=== PATIENT | female | born 2000 | race Caucasian/White ===

== ENCOUNTER → 2022-09-01 | Outpatient (CLI) | payer OTHER, SELFPAY ==
--- NOTE | 2022-09-01 17:35 | MRI_ITS ---
STUDY: MRI LUMBAR SPINE WITHOUT CONTRAST REASON FOR EXAM: Female, 22 years old. pain TECHNIQUE: Standardized fat and water weighted pulse sequences were obtained in the sagittal and axial planes. COMPARISON: X-ray 08/02/2021 FINDINGS: T12-L1: Normal endplates. Normal disc height, hydration and morphology. Normal bilateral facet joints. Normal central canal and bilateral lateral recesses. Normal bilateral intervertebral neural foramina. Normal lumbar lordosis. Mild dextroscoliosis centered at L3. Normal conus medullaris that terminates at the L1. L1-2: Normal endplates. Normal disc height, hydration and morphology. Normal bilateral facet joints. Normal central canal and bilateral lateral recesses. Normal bilateral intervertebral neural foramina. L2-3: Normal endplates. Normal disc height, hydration and morphology. Normal bilateral facet joints. Normal central canal and bilateral lateral recesses. Normal bilateral intervertebral neural foramina. L3-4: Normal endplates. Normal disc height, hydration and morphology. Normal bilateral facet joints. Normal central canal and bilateral lateral recesses. Normal bilateral intervertebral neural foramina. L4-5: Large central disc protrusion produces severe spinal stenosis with severe bilateral lateral recess stenosis with effacement of the L5 nerve roots bilaterally and no neural foraminal stenosis. L5-S1: Normal endplates. Normal disc height, hydration and morphology. Normal bilateral facet joints. Normal central canal and bilateral lateral recesses. Normal bilateral intervertebral neural foramina. Normal visualized sacral ala. Normal visualized paraspinous soft tissue structures. MRI/Spine Lumbar (Routine) IMPRESSION: Large central disc protrusion at L4/L5 produces severe spinal stenosis with severe bilateral recess stenosis with effacement of the L5 nerve roots bilaterally. Electronically Signed: Sher Saldaña MD at 18:59 EDT ,
== END | disposition home or self-care (01) ==
PROVIDERS: PCP Family Medicine; Visit Provider Orthopaedic Surgery
DX: M54.50 Low back pain, unspecified (principal)
CPT/HCPCS: 72148

== ENCOUNTER 2022-10-03 05:31 | Inpatient (IN) | payer OTHER, SELFPAY ==
--- NOTE | 2022-09-22 14:11 | EKG12_ITS ---
Test Reason : PRE OP Blood Pressure : / mmHG Vent. Rate : 074 BPM Atrial Rate : 074 BPM P-R Int : 150 ms QRS Dur : 082 ms QT Int : 392 ms P-R-T Axes : 037 070 041 degrees QTc Int : 435 ms Normal sinus rhythm Normal ECG Confirmed by DANA TAYLOR, ZOEY ([id number]), fan mail editor KAELA GÓMEZ ([id number]) on 09/25/2022 1:22:17 PM Referred By: ALKA Confirmed By:ZOEY CORTEZ MD
[2022-09-22 15:42] LABS: Absolute Neutrophil Count 4.9 X10^3/uL (2.0-7.7); Basophil# 0.02 X10^3/uL; Basophil% 0.3 % (0-1); Eosinophil# 0.05 X10^3/uL; Eosinophils% 0.7 % (0-5); Hematocrit 39.8 % (37-47); Hemoglobin 13.8 g/dL (12.0-15.0); Lymphocyte % 21.8 % (19-41); Mean Corp Hgb Conc 34.7 g/dL (32-36); Mean Corpuscular Volume 92.3 fL (81-99); Mean Platelet Vol. 8.4 fl (6.2-12.0); Monocyte# 0.42 X10^3/uL; Monocyte% 6.1 % (0-10); NRBC Flagged by Analyzer 0 % (0-5); Neutrophil # 4.86 X10^3/uL (2.7-7.7); Neutrophil % 70.7 % (47-70); Platelet Count 358 K/mm3 (150-450); RBC Distribution Width CV 12.1 % (11.6-14.6); RBC Distribution Width SD 41.5 fl (35.1-43.9); Red Blood Count 4.31 M/mm3 (4.2-5.4); White Blood Count 6.9 K/mm3 (4.4-11.0)
[2022-09-22 16:09] LABS: Magnesium 2.1 mg/dL (1.6-2.6)
[2022-09-22 16:19] LABS: Anion Gap 10 (5-15); BUN 12 mg/dL (7-18); BUN/Creat Ratio 21.6 RATIO (10-20); Calcium,Total 9.4 mg/dL (8.5-10.1); Chloride 106 mmol/L (98-107); Creatinine, Serum 0.56 mg/dL (0.55-1.02); EST Glomerular Filtration Rate 146 mL/min (>60); Est Glom Filt Rate - Afr Amer 177 mL/min (>60); Glucose 86 mg/dL (74-106); Potassium 3.8 mmol/L (3.5-5.1); Sodium Level 141 mmol/L (136-145)
[2022-09-24 10:47] LABS: Hepatitis A AB, Total Negative (Negative)
[2022-09-25 08:45] LABS: HIV - WCH Non-Reactive (Nonreactive); Hepatitis B Surface Antibody Reactive; Hepatitis C Antibody Non-Reactive (Nonreactive)
--- NOTE | 2022-10-02 14:50 | PCM.HP.BLA ---
History and Physical Addendum MR#: [id number] Acct: [id number] Name:PRICILA LENTZ Rep #: [id number] : 2000 ? ? Provider: Dr. David Goldman, DO Age/Sex:? 22/F ? ? Location: [facility] [place].[facility] Status: Signed Intake Intake Visit Reasons:?lumber spine Allergies Penicillins Allergy (Mild, Verified 08/02/22 14:26) Other PFSH Surgical History?(Updated 08/02/22 @ 14:40 by Misa Scott) Hx of appendectomy Social History?(Updated 08/02/22 @ 14:43 by Misa Scott) Smoking Status:? Never smoker alcohol intake:? current what type of physical activity do you participate in:? walking HPI lumber spine Details: Parts of this documentation were recorded by a scribe, this documentation accurately reflects the service provided and the decisions made by me, Dr. David Goldman, DO 09/04/22 0914. PRICILA MORRIS is a 22 year old F here today for? F/U on lumbar spine after having MRI completed. She continues to have low back pain that radiates down both her legs but more into her right. States that she has numbness and tingling in both her legs more more in the feet. States that her pain is more by her butt.?She states that the pain has gotten worse. Denies any bowel or bladder issues. Mckenzie returns today at my request.? She is in the company of her mother Amna.? Sunday night I got a call from the department of radiology regarding the MRI scan that Pricila had on Sunday.? I was told that she had a large herniated disc at L4-5 with severe stenosis because of the disc.? Sunday morning I came to my office so that I could review the MRI scan myself.? Indeed she does have a very large herniation with calcification of part of the disc given her a very severe stenosis with a lot of pressure on the cauda equina.? I would call it critical.? Her mother who was in [place] on Sunday promptly returned home upon hearing the news.? I personally called Mckenzie from my office on Sunday and ask her to come here today to review the MRI scan.? Luckily she brought her mom with her. Their examination has not changed she has pain with extension or flexion of her lumbar spine.? But she remains neurologically intact in both lower extremities. I reviewed the MRI scan itself with Amna her mom and Pricila.? 1 does not have to be radiologist to see the severity of the stenosis that she has.? I explained to them that because is a such a large central herniation that it would be impossible to get it all of it from the back.? As the cauda equine will be in the way.? Will require an anterior approach for part of the decompression.? Where I will go through the disc anteriorly after a vascular surgeon gives me access he would then put a cage in place and a plate.? I do not think that a artificial disc is a good idea as she will still have movement.? Part of the idea is that we need that motion segment at L4-5 to stop moving.? Once the front part is done we will then do bilateral laminectomies at L4-5.? The calcified top portion of the disc will also be a challenge where I may be able to tamp it down.? Overall the whole idea of the surgery is to decompress the cauda equina.? Pricila and her mom both understood perfectly and saw the big picture.? We will schedule her in the [id number] future.? I will see her again 1 week before her surgery at preop. Coding Level of Care Code Off vis,est,level 2 Diagnoses HNP (herniated nucleus pulposus), lumbar? M51.26 Herniated nucleus pulposus, L4-5? M51.26 Spinal stenosis at L4-L5 level? M48.061 Time Spent (min) 35 Assessment and Plan Assessment and Plan (1) HNP (herniated nucleus pulposus), lumbar: ?Status:?Acute (2) Herniated nucleus pulposus, L4-5: ?Status:?Acute (3) Spinal stenosis at L4-L5 level:
[2022-10-03] VITALS (15 sets, daily range): BP systolic 105–130; BP diastolic 65–91; PULSE 66–91; RESP 13–17; TEMP 36–36.8; O2SAT 98–100; BMI 30.4
[2022-10-03 06:14] LABS: Internal QC Validated? YES +Cl - CLEAR BKGD; Pregnancy, Urine Negative Negative
[2022-10-03] MEDS: Lactated Ringers 1,000 ML 15 ML IV (06:30)
[2022-10-03] MEDS: Acetaminophen 500 MG Tablet 1000 MG PO ×2 (06:31→18:42)
[2022-10-03 07:35] LABS: Bedside Glucose 95 mg/dL (74-106)
[2022-10-03] MEDS: Cefazolin 2 GM in 0.9% Normal Saline 100 ML IV (08:00)
[2022-10-03] MEDS: Heparin 10,000 UNITS/10 ML Vial 10000 UNITS (08:31)
[2022-10-03] MEDS: THROMBIN (RECOMBINANT) 20,000 UNIT VIAL 20000 UNIT TOPICAL (08:31)
--- NOTE | 2022-10-03 10:15 | RAD_ITS ---
STUDY: X-RAY - LUMBAR SPINE REASON FOR EXAM: Female, 22 years old. 360 FUSION L4-5 WITH BILATERAL LAMINECTOMIES TECHNIQUE: 1 view(s) of the lumbar spine were obtained. COMPARISON: None FINDINGS: The localization instrument is seen anterior to the L5-S1 disc space level. RAD/Spine 1 View Any Level IMPRESSION: The localization instrument is seen anterior to the L5-S1 disc space level. Electronically Signed: Ilan Dey MD at 14:37 EST ,
--- NOTE | 2022-10-03 10:45 | RAD_ITS ---
STUDY: X-RAY - LUMBAR SPINE REASON FOR EXAM: Female, 22 years old. IMAGE 2 confirmed L4-5 TECHNIQUE: 1 view(s) of the lumbar spine were obtained. COMPARISON: None FINDINGS: The localization instrument is seen anterior to the L4-L5 disc space level. RAD/Spine 1 View Any Level IMPRESSION: The localization instrument is seen anterior to the L4-L5 disc space level. Electronically Signed: Ilan Dey MD at 14:37 EST ,
--- NOTE | 2022-10-03 11:45 | RAD_ITS ---
STUDY: X-RAY - LUMBAR SPINE REASON FOR EXAM: Female, 22 years old. IMAGE 3 TECHNIQUE: 1 view(s) of the lumbar spine were obtained. COMPARISON: Comparison is made with prior study done earlier today. FINDINGS: The patient is status post anterior fusion at the L4-L5 level with prosthetic disc placement. RAD/Spine 1 View Any Level IMPRESSION: Status post anterior fusion at the L4-L5 level with prosthetic disc. Electronically Signed: Ilan Dey MD at 14:38 EST ,
--- NOTE | 2022-10-03 11:50 | RAD_ITS ---
STUDY: X-RAY - LUMBAR SPINE REASON FOR EXAM: Female, 22 years old. IMAGE 4 TECHNIQUE: 4 view(s) of the lumbar spine were obtained. COMPARISON: October 03, 2022 11:34 AM. FINDINGS: A single lateral view demonstrated. There is a anteriorly located side plate cortical screws and a disc spacer at L4-L5. There is a posterior plate has been a laminectomy at the level of L4-L5. RAD/Spine 1 View Any Level IMPRESSION: Lateral view demonstrating anterior posterior spinal fusion L4-L5 with a disc spacer. Electronically Signed: Shaniqua Leon MD at 0:25 EST ,
--- NOTE | 2022-10-03 12:07 | OP.PCM_ITS ---
Report of Operation Description of Surgical Findings:: Preoperative diagnosis: Large herniated disc L4-5 Postoperative diagnosis: The same Procedures: #1 anterior lumbar interbody fusion L4-5 CPT code 75263 #2 anterior spine plate L4-5 CPT code 50794/59 #3 insertion of titanium cage L4-5 CPT code 91845 Co-surgeon's: Dr. Goldman and Dr. Alejo anesthesiologist assistant certified: Clemente from surgery Anesthesia: General endotracheal by [facility] EBL: Less than 100 Drains: None Complications: None Procedure: The patient was taken to the OR where she was placed in the supine position on the operating table she was then placed under general endotracheal anesthesia. Neuro monitoring placed their leads on the patient. A Vargas catheter was inserted. The abdomen was then prepped and draped in standard fashion. The surgical approach is described in Dr. Alejo's operative summary. Once he gained exposure at L4-5 and intraoperative BX x-ray was taken to prove that we were indeed at L4-5. This was confirmed by the radiologist. I think of the anterior annulus with a 10 blade. I remove the nucleus with pituitary rongeurs and both bowl curettes and ring curettes. This is a extended process because of the hard endplate. We removed the nucleus all the way back to the posterior annulus that there was indeed a tear in the annulus as expected of course and its unknown whether when we removed nucleus if some of it came in hoang k through the hole and into this but did space. Nonetheless this will be addressed when we do the backside what I have to do a laminotomy L4-5 on both sides starting with the right. This was done I removed all the cartilage off the endplates. I also used a 6 mm fan bur to bur the backside a little bit to make room for the cage. We decided on a 12 mm high cage that was 25 x 35 in size and 8 degrees of lordosis. Noted earlier we had a taken 60 cc of the patient's bone marrow aspirate from the left iliac crest. This was handed off to the hazardous material technician in the room she the stem cells from the other cells concentrated them about 10 times and gave them back to us. I then placed the spongy allograft in the cage filling the spaces on both halves and this was then soaked in the patient's own stem cells. This was then tamped into place. Note that we of course did broach the space repeatedly to get good bleeding and plate. Once the cage was in place it was countersunk 2 or 3 mm we then used a 23 mm plate anteriorly note that we did cheat to the left side because this was the L4-5 level and wanted to keep the plate away from the great vessels. I then used an awl to punch the first of 4 holes the first 1 was into L5 on 1 corner followed by L4 on the opposite corner once the awl was done the 30 mm screws were inserted. This was done in all 4 points. The locking mechanisms were then activated. We then took an intraoperative x-ray demonstrated excellent position of the cage the plate and the screws. Amniotic membrane was then placed over the plate to prevent adhesions to the great vessels in the future. The closure is then described in Dr. Alejo's operative summary. This is the end of operative summary on Mckenzie Alvarenga. This is Dr. Goldman dictating.
--- NOTE | 2022-10-03 13:48 | RAD_ITS ---
STUDY: X-RAY - LUMBAR SPINE REASON FOR EXAM: Female, 22 years old. IMAGE 5 TECHNIQUE: 1 view(s) of the lumbar spine were obtained. 3:22 PM COMPARISON: None FINDINGS: This is a single lateral view 3:22 PM demonstrating anterior plate disc spacer and posterior hardware at the level of L4-L5. There is been a laminectomy. RAD/Spine 1 View Any Level IMPRESSION: Postoperative changes 3:22 PM lumbar spine status post fusion. Electronically Signed: Shaniqua Leon MD at 2:19 EST ,
--- NOTE | 2022-10-03 16:09 | OP.PCM_ITS ---
Report of Operation Description of Surgical Findings:: Preoperative diagnosis: Large herniated disc L4-5 with impending cauda equina Postoperative diagnosis: Same Procedures: #1 posterior lumbar interbody fusion L4-5 CPT code 65949 #2 lumbar laminectomy L4-5 on the right CPT code 78868 #3 lumbar laminectomy L4-5 on the left CPT code 01449/50 and 51 #4 internal segmental fixation L4-5 CPT code 59648 Surgeon: Dr. Goldman assistant manager airside operations: Clemente from surgery Anesthesia: General endotracheal by [facility] EBL: 75 cc on the back for a total of 175 cc for both the front surgery and the back surgery Drains medium Hemovac drain Complications: None Procedure: Once the anterior procedure was done and the anterior wound closed the patient was then placed in the prone position on the Juan frame. Once positioned properly to protect her bony prominences her breasts her ulnar nerves of both elbows her brachial plexus her cervical spine the back was prepped and draped standard fashion. I then made a longitudinal incision centered over L4- 5. Subcutaneous tissues were incised length of skin incision. I was working from the patient's right side so I opened the lumbar fascia to the right of the spinous processes using cautery and elevated the paravertebral muscles off the lamina and spinous process of L4 and the top of the lamina of L5. A Renay retractor was then put in place to give us good access I then released the ligamentum flavum off the underside of the lamina of L4 I thinned the lamina down with double-action rongeurs and then performed the hemilaminectomy on the right side using both 3 and 4 mm Kerrison rongeurs. I then remove the ligamentum flavum in retrograde fashion with a 45 degree Kerrison rongeurs all the way back down to the top of the L5 lamina. There was then retracted the L5 nerve root and the dura medialward and the large herniated disc was observed noted at the upper portion of it with course was calcified and the bottom portion was not using a 15 blade we opened at the bottom portion and removed more disc from within the remaining disc space. The cage was observed. Was impossible to cut into the calcified portion of the disc however I used a tamp to tamp it down and tamped it down flat. Bleeders were controlled with bipolar cautery and thrombin-soaked Gelfoam. We packed the Gelfoam in place and removed the other side I then open the left side the same way elevating the paravertebral muscles off the lamina of L5 and the lamina of L4 I then elevated the paravertebral muscles all the way out to the facet at this point we went ahead and put the self-retaining super slider retractors in place. I thinned down the lamina again removed or elevated the ligamentum flavum off the underside of the lamina of L4 and the laminectomy of L4 was carried out with 45 degree Kerrison rongeurs. This was done again the dura was identified along with the nerve root it was then retracted to the midline and again I cut into the disc with actually a rather large fragment coming out from under the annulus. Again the tamp was used to tamp down the remaining and bulging heart hard calcified disc. This completely decompressed the cauda equina. Note that we then placed amnionic membrane over both laminotomy sites to prevent adhesions in the future. I then removed the interspinous ligament between L5 and L for the H graft was then tamped in place still to be used a 16 mm graft. This was an allograft. The internal fixation device was then applied and the locking locking mechanisms activated. A medium Hemovac drain was left in place and then closed the lumbar fascia using [id number] suture with #1 Vicryl for closure of subcutaneous tissues with 2-0 Vicryl in 2 layers in interrupted fashion and the skin was approximated using skin clips. Sterile dressings were then applied. She was then recovered in the OR she was moved to her hospital bed and taken to recovery in satisfactory condition. This is the end of operative summary on Mckenzie Alvarenga. This is Dr. Goldman dictating.
--- NOTE | 2022-10-03 17:11 | OP.PCM_ITS ---
Report of Operation Date of Procedure: 10/03/22 Pre-Operative Diagnosis: Herniated disc L4-L5 Post-Operative Diagnosis: Same Surgery/Procedure Performed:: Anterior lumbar interbody fusion L4-L5 Surgeon: Zr-eagreau-OgDr. Jones Alejo Type of Anesthesia: General Description of Procedure: HPI: Patient is a 22-year-old female with herniated L4-L5 disc who was evaluated by Dr. Goldman and felt to be appropriate for anterior approach lumbar interbody fusion. Vascular surgery services are obtained for exposure and vessel mobilization. Description of procedure: Upon obtaining form consent and verification correct patient procedure and site, the patient was taken the operating room where she was placed under anesthesia. Time out was then performed, and a transverse incision was made in the left lower quadrant just inferior to the umbilicus. Bovie electrocautery was dissect out the subcutaneous tissue down to the level of the fascia and self-retaining retractors put in position. The fascia was then incised transversely, with counterincision on the medial inferior aspect and the lateral superior aspect. There is a fair amount of scar in the fascia and rectus muscle likely from her prior appendectomy surgery. The scar was dissected free and the rectus muscle mobilized circumferentially and retracted medially. Next blunt dissection was used to mobilize the peritoneum from the posterior aspect of the fascia and mobilized medially. The posterior sheath was then freed from the peritoneum and incised vertically. Further blunt dissection was carried medially until midline structures were palpable at which point a wet lap sponge was put in the position to maintain her dissected plane. This point the rectus muscle was then retracted laterally and an Omni retractor was brought into the field and placed in the position. Once the retractor blades were put in position the lap sponge was removed at which point the iliac vessels were visualized. Combination of sharp and blunt dissection was then used to dissect free the left iliac artery and vein, and of note the patient had a very short common iliac artery with high bifurcation. We initially dissected medial to the iliac artery and staying lateral to the iliac vein, however from this position we are unable to gain adequate cephalad exposure to visualize the L4-L5 disc space. At this point retractors were repositioned and the iliac artery and aorta within retracted medially. The iliolumbar vein was identified ligated with silk ties, medium clips, and oversewn with a 5-0 Prolene. Was then divided allowing further medial retraction. This point further blunt dissection was used to mobilize vascular structures medially until satisfactory midline vertebral body visualization was obtained. At this point the interbody space was marked and x-ray performed to confirm location, Dr. Goldman scrubbed in to perform his portion of the procedure which she dictate separately. After completion of the discectomy and insertion of hardware, the vessels were then inspected with no evident injury and satisfactory stasis. The retractor blades were then removed sequentially while inspecting the retroperitoneal structures, again with satisfactory stasis. The peritoneum and its contents was then allowed to return to its united keetoowah position and self-retaining retractor blades removed in entirety. The fascia was then closed with PDS in a running fashion followed by irrigation of the subcutaneous space. Incision was then closed with 2-0 Vicryl, 3-0 Vicryl, 4-0 Monocryl and Dermabond for the skin. At this point dry dressings were applied and the patient repositioned for posterior instrumentation by Dr. Goldman.
[2022-10-03] MEDS: Morphine 4 MG/ML Syringe IV (18:42)
[2022-10-03] MEDS: 0.9% Saline Lock 10 ML Syringe IV (18:43)
[2022-10-03] MEDS: Lactated Ringers 1,000 ML 100 ML IV (19:46)
[2022-10-03] MEDS: FLUoxetine 10 MG Capsule 30 MG PO (19:46)
[2022-10-03] MEDS: Cefazolin 1 GM/50 ML BAG IV (19:47)
--- NOTE | 2022-10-03 20:06 | PCM.PN.HOSP ---
Subjective Subjective 22-year-old female presenting for medical management after an anterior lumbar interbody fusion L4-L5. She has no medical history, and is doing well postoperatively. Objective Data Objective Data Vital Signs: Vital Signs Temp Pulse Resp BP Pulse Ox O2 Del Method O2 Flow Rate 98.2 F 88 14 121/85 H 100 Room Air 4 10/03/22 19:02 10/03/22 19:02 10/03/22 19:02 10/03/22 19:02 10/03/22 19:02 10/03/22 19:02 10/03/22 18:00 Oxygen Flow Rate (L/min) 4 Oxygen Delivery Method Room Air Weight: 177 lb 11.081 oz Body Mass Index (BMI) 30.4 Intake & Output: Intake and Output for Last 24 Hours 10/02/22 10/03/22 10/04/22 03:59 03:59 03:59 Intake Total 4212 / 4212 Output Total 850 / 850 Balance 3362 / 3362 Lab / Micro Data Result Diagrams: 09/22/22 14:26 09/22/22 14:26 Labs: Laboratory Results - last 24 hr 10/03/22 06:03: Urine Test Negative 10/03/22 06:25: POC Glucose 95 Micro: Microbiology 09/22/22 14:26 Swab (Method) Nasal Screen MRSA/MSSA - Final Radiography Diagnostic Testing: Radiology Impression Spine X-Ray 10/03/22 10:15 IMPRESSION: The localization instrument is seen anterior to the L5-S1 disc space level. Electronically Signed: Ilan Dey MD at 14:37 EST , Spine X-Ray 10/03/22 10:45 IMPRESSION: The localization instrument is seen anterior to the L4-L5 disc space level. Electronically Signed: Ilan Dey MD at 14:37 EST , Spine X-Ray 10/03/22 11:45 IMPRESSION: Status post anterior fusion at the L4-L5 level with prosthetic disc. Electronically Signed: Ilan Dey MD at 14:38 EST , Physical Exam Const alert, oriented x3 and no apparent distress General Appearance: cooperative HEENT normocephalic and moist oral mucous membranes Eyes PERRL, EOMs intact bilaterally and conjunctivae normal Neck supple and no JVD Resp normal respiratory effort, no retractions, no use of accessory muscles and clear to auscultation bilaterally Auscultation: Negative for crackles, rales, rhonchi or wheezes Cardio regular rate, regular rhythm, S1 normal heart sound, S2 normal heart sound and no murmurs GI soft to palpation, non-tender and non-distended; Negative for hepatosplenomegaly Extremity no clubbing, cyanosis or edema Skin no rashes or lesions noted Skin Narrative: Dressing and drain intact Neuro no focal motor deficits and no sensory deficits noted Psych affect normal Appearance: appropriate Assessment & Plan Assessment/Plan (1) Herniated nucleus pulposus, L4-5: (2) Spinal stenosis at L4-L5 level: PLAN: Plan 1. Status post spinal fusion 10/03/2022 ? Pain management per primary 2. Anxiety/depression ? Stable ? Continue with Prozac DVT: SCDs Charges/Coding Visit Charges Inpatient E&M: 33317 Subs Hosp L2
[2022-10-03] MEDS: oxyCODONE 5 MG Tablet PO (22:20)
[2022-10-04] VITALS (9 sets, daily range): BP systolic 108–123; BP diastolic 55–78; PULSE 68–95; RESP 18; TEMP 36.6–37.5; O2SAT 95–100
[2022-10-04] MEDS: Cefazolin 1 GM/50 ML BAG IV (02:28)
[2022-10-04] MEDS: Acetaminophen 500 MG Tablet 1000 MG PO ×3 (06:14→21:15)
[2022-10-04] MEDS: oxyCODONE 5 MG Tablet PO ×4 (06:14→21:15)
[2022-10-04 06:59] LABS: Absolute Lymphocyte Count 1.34 X10^3/uL (0.83-4.51); Absolute Neutrophil Count 16.1 X10^3/uL (2.0-7.7); Basophil# 0.02 X10^3/uL; Basophil% 0.1 % (0-1); Hematocrit 36.2 % (37-47); Hemoglobin 12.8 g/dL (12.0-15.0); Lymphocyte # 1.34 X10^3/ul (0.83-4.51); Lymphocyte % 7.2 % (19-41); Mean Corp Hgb Conc 35.4 g/dL (32-36); Mean Corpuscular Hgb 32.5 pg (27.0-32.0); Mean Corpuscular Volume 91.9 fL (81-99); Mean Platelet Vol. 8.8 fl (6.2-12.0); Monocyte# 1.12 X10^3/uL; NRBC Flagged by Analyzer 0 % (0-5); Neutrophil # 16.08 X10^3/uL (2.7-7.7); Neutrophil % 86.3 % (47-70); POSITIVE COUNT YES; Platelet Count 292 K/mm3 (150-450); RBC Distribution Width CV 11.9 % (11.6-14.6); RBC Distribution Width SD 40.3 fl (35.1-43.9); Red Blood Count 3.94 M/mm3 (4.2-5.4); White Blood Count 18.6 K/mm3 (4.4-11.0)
[2022-10-04 07:04] LABS: Differential Indicated SCAN CRITERIA MET
[2022-10-04 07:16] LABS: Anion Gap 9 (5-15); BUN 6 mg/dL (7-18); BUN/Creat Ratio 9.7 RATIO (10-20); Calcium,Total 9.2 mg/dL (8.5-10.1); Chloride 104 mmol/L (98-107); Creatinine, Serum 0.62 mg/dL (0.55-1.02); EST Glomerular Filtration Rate 129 mL/min (>60); Est Glom Filt Rate - Afr Amer 156 mL/min (>60); Estimated Creatinine Clearance 123.95 ml/min; Glucose 100 mg/dL (74-106); Sodium Level 137 mmol/L (136-145)
[2022-10-04 07:21] LABS: Platelet Morphology CLUMPED
--- NOTE | 2022-10-04 07:30 | DISC_PTH ---
PATIENT: PRISCILA MORRIS LOC: MS3 U#:[id number] AGE/SX: 22/F ROOM: PA321 RE10/03/[address]: Dr. David Goldman DO : 2000 BED: 1 DIS: 10/06/2022 SPEC #: [id number] RECD: 10/04/22 10:48 STATUS: ANNEL ZOLTAN #: [id number] ROBERTA: 10/04/22 07:[address]: David Goldman DEPT: SURGICAL PATHOLOGY RECD BY: Lauren Pollard ENTERED: 10/04/22 11:54 SP TYPE: DISC OTHR DR: MD Dr. Lyric Mcneil MD Tissues: Intervertebral disc, NOS Procedures: Surgery Specimen Level III HEADER OPERATION: ERAS, 360 lumbar fusion L4-5 with bilateral laminectomies PRE-OP DIAGNOSIS: HNP, herniated nucleus pulposus, L4-5, spinal stenosis at L4-L5 TISSUE SUBMITTED: L4-L5 disc MICROSCOPIC DIAGNOSIS L4-L5 disc, bilateral laminectomies: Fragments of fibrocartilaginous tissue with degenerative changes. /SJ 10/05/22 MICROSCOPIC DESCRIPTION Slides are reviewed. GROSS DESCRIPTION Received in fixative is one container labeled with the patient's name and designated L4-L5 disc. The specimen consists of multiple irregular fragments of mckenzie indurated tissue measuring in aggregate 4 x 4 x 2 cm. Watch Leader sections are submitted in 2 cassettes. /GENEVA:zeke 10/04/2022 :5 CPT: 00583
[2022-10-04] MEDS: 0.9% Saline Lock 10 ML Syringe IV (07:58)
[2022-10-04] MEDS: Morphine 4 MG/ML Syringe IV (07:58)
--- NOTE | 2022-10-04 09:35 | PCM.PN.HOSP ---
Subjective Subjective Reports doing well overall, no complaints at time of exam Objective Data Objective Data Vital Signs: Vital Signs Temp Pulse Resp BP Pulse Ox O2 Del Method O2 Flow Rate 98 F 68 18 108/64 98 Room Air 4 10/04/22 08:48 10/04/22 08:48 10/04/22 08:48 10/04/22 08:48 10/04/22 08:48 10/04/22 08:48 10/04/22 02:39 Oxygen Flow Rate (L/min) 4 Oxygen Delivery Method Room Air Weight: 80.6 kg Body Mass Index (BMI) 30.4 Intake & Output: Intake and Output for Last 24 Hours 10/02/22 10/03/22 10/04/22 23:59 23:59 23:59 Intake Total 4262 / 4262 1520.5 / 1520.5 Output Total 880 / 880 2880 / 2880 Balance 3382 / 3382 -1359.5 / -1359.5 Lab / Micro Data Result Diagrams: 10/04/22 06:40 10/04/22 06:40 Labs: Laboratory Results - last 24 hr 10/04/22 06:40: WBC 18.6 H, RBC 3.94 L, Hgb 12.8, Hct 36.2 L, MCV 91.9, MCH 32.5 H, MCHC 35.4, RDW Std Deviation 40.3, RDW Coeff of Mei 11.9, Plt Count 292, MPV 8.8, Immature Gran % (Auto) 0.400, Neut % (Auto) 86.3 H, Lymph % (Auto) 7.2 L, [place] % (Auto) 6.0, Eos % (Auto) 0.0, Baso % (Auto) 0.1, Absolute Neuts (auto) 16.1 H, Absolute Lymphs (auto) 1.34, Nucleated RBC % 0, Plt Morphology Comment CLUMPED 10/04/22 06:40: Sodium 137, Potassium 4.0, Chloride 104, Carbon Dioxide 24.0, Anion Gap 9, BUN 6 L, Creatinine 0.62, Estim Creat Clear Calc 123.95, Est GFR (MDRD) Af Amer 156, Est GFR (MDRD) Non-Af 129, BUN/Creatinine Ratio 9.7 L, Glucose 100, Calcium 9.2 Micro: Microbiology 09/22/22 14:26 Swab (Method) Nasal Screen MRSA/MSSA - Final Radiography Diagnostic Testing: Radiology Impression Spine X-Ray 10/03/22 10:15 IMPRESSION: The localization instrument is seen anterior to the L5-S1 disc space level. Electronically Signed: Ilan Dey MD at 14:37 EST , Spine X-Ray 10/03/22 10:45 IMPRESSION: The localization instrument is seen anterior to the L4-L5 disc space level. Electronically Signed: Ilan Dey MD at 14:37 EST , Spine X-Ray 10/03/22 11:45 IMPRESSION: Status post anterior fusion at the L4-L5 level with prosthetic disc. Electronically Signed: Ilan Dey MD at 14:38 EST , Spine X-Ray 10/03/22 11:50 IMPRESSION: Lateral view demonstrating anterior posterior spinal fusion L4-L5 with a disc spacer. Electronically Signed: Shaniqua Leon MD at 0:25 EST , ADDENDUM: 10/04/22 0321 IMPRESSION: undefined Spine X-Ray 10/03/22 13:48 IMPRESSION: Postoperative changes 3:22 PM lumbar spine status post fusion. Electronically Signed: Shaniqua Leon MD at 2:19 EST , Physical Exam Const alert and no apparent distress Constitutional Narrative: Oriented HEENT normocephalic and head/scalp atraumatic Eyes Eyes Narrative: EOM grossly intact, anicteric Neck supple Resp normal respiratory effort and clear to auscultation bilaterally Cardio regular rate and regular rhythm GI soft to palpation, non-tender and non-distended Extremity Extremity Narrative: No edema appreciated Neuro moves all extremities Neuro Narrative: No overt focal deficits appreciated Psych Psych Narrative: Cooperative Assessment & Plan Assessment/Plan (1) Herniated nucleus pulposus, L4-5: (2) Spinal stenosis at L4-L5 level: PLAN: Plan 1. Status post spinal fusion 10/03/2022 ? Pain management per primary 2. Anxiety/depression ? Stable ? Continue with Prozac DVT: SCDs Charges/Coding Visit Charges Inpatient E&M: 69717 Subs Hosp L2
[2022-10-04] MEDS: Ensure Surgery 237 ML LIQUID PO ×3 (09:51→16:09)
[2022-10-04] MEDS: FLUoxetine 10 MG Capsule 30 MG PO (09:51)
--- NOTE | 2022-10-04 11:10 | CASEMGMT ---
BAO PRIETO Assessment: Face to Face with pt for initial transition planning/care coordination assessment. BAO PRIETO introduced self and role at [facility], pt voices understanding and consents to assessment. Pt is A/O x4 and answers all questions appropriately at this time. Pt lying in bed in no distress. Care providers, pharmacy, and demographics verified/updated. Admitting Dx: 360 fusion bilat laminectomies PCP:[facility] Specialists:[facility], spine OR Preferred [facility]acy: [facility] Insurance: MMO Prescription Benefit: yes LNOK: Amna Alvarenga, mother Living Arrangements: Pt lives with parents in a two story house with 2-3 steps to enter with a rail. Pt reports she is I in ADL's and denies concerns at home. Transportation: Pt drives self and denies concerns with transportation. Pt states her parents are able to transport her post surgery. DME/HHC/SNF: Pt denies having any AD at home, prior HHC or SNF stays. Pt states no concerns with going home at time of dc. Pt has not yet been up with therapy. Pt states no further concerns/needs. CM to follow. Advised pt to ask CM if any further question/concerns/needs arise, voices understanding. Pt Goal: Home Plan: Home
--- NOTE | 2022-10-04 13:35 | PCM.PN.ORT ---
Subjective Subjective Postop day #1. Pricila is seen on rounds. Change her dressing and the incision is healing well I remove the drain which was already partially pulled out. She states that her back hurts some but she is not doing too badly moves around easily in bed. She relates that her right leg pain is all gone. Neurologically she is intact in both lower extremities. Therapy was about the walker as I was leaving. Progress is satisfactory. Objective Data Objective Data Vital Signs: Vital Signs Temp Pulse Resp BP Pulse Ox O2 Del Method O2 Flow Rate 98 F 68 18 108/64 98 Room Air 4 10/04/22 08:48 10/04/22 08:48 10/04/22 08:48 10/04/22 08:48 10/04/22 08:48 10/04/22 08:48 10/04/22 02:39 Oxygen Flow Rate (L/min) 4 Oxygen Delivery Method Room Air Weight: 177 lb 11.081 oz Body Mass Index (BMI) 30.4 Intake & Output: Intake and Output for Last 24 Hours 10/02/22 10/03/22 10/04/22 23:59 23:59 23:59 Intake Total 4262 / 4262 1520.5 / 1520.5 Output Total 880 / 880 2880 / 2880 Balance 3382 / 3382 -1359.5 / -1359.5 Lab / Micro Data Result Diagrams: 10/04/22 06:40 10/04/22 06:40 Labs: Laboratory Results - last 24 hr 10/04/22 06:40: WBC 18.6 H, RBC 3.94 L, Hgb 12.8, Hct 36.2 L, MCV 91.9, MCH 32.5 H, MCHC 35.4, RDW Std Deviation 40.3, RDW Coeff of Mei 11.9, Plt Count 292, MPV 8.8, Immature Gran % (Auto) 0.400, Neut % (Auto) 86.3 H, Lymph % (Auto) 7.2 L, [place] % (Auto) 6.0, Eos % (Auto) 0.0, Baso % (Auto) 0.1, Absolute Neuts (auto) 16.1 H, Absolute Lymphs (auto) 1.34, Nucleated RBC % 0, Plt Morphology Comment CLUMPED 10/04/22 06:40: Sodium 137, Potassium 4.0, Chloride 104, Carbon Dioxide 24.0, Anion Gap 9, BUN 6 L, Creatinine 0.62, Estim Creat Clear Calc 123.95, Est GFR (MDRD) Af Amer 156, Est GFR (MDRD) Non-Af 129, BUN/Creatinine Ratio 9.7 L, Glucose 100, Calcium 9.2 Micro: Microbiology 09/22/22 14:26 Swab (Method) Nasal Screen MRSA/MSSA - Final Radiography Diagnostic Testing: Radiology Impression Spine X-Ray 10/03/22 10:15 IMPRESSION: The localization instrument is seen anterior to the L5-S1 disc space level. Electronically Signed: Ilan Dey MD at 14:37 EST , Spine X-Ray 10/03/22 10:45 IMPRESSION: The localization instrument is seen anterior to the L4-L5 disc space level. Electronically Signed: Ilan Dey MD at 14:37 EST , Spine X-Ray 10/03/22 11:45 IMPRESSION: Status post anterior fusion at the L4-L5 level with prosthetic disc. Electronically Signed: Ilan Dey MD at 14:38 EST , Spine X-Ray 10/03/22 11:50 IMPRESSION: Lateral view demonstrating anterior posterior spinal fusion L4-L5 with a disc spacer. Electronically Signed: Shaniqua Leon MD at 0:25 EST , ADDENDUM: 10/04/22 0321 IMPRESSION: undefined Spine X-Ray 10/03/22 13:48 IMPRESSION: Postoperative changes 3:22 PM lumbar spine status post fusion. Electronically Signed: Shaniqua Leon MD at 2:19 EST ,
[2022-10-04] MEDS: Lactated Ringers 1,000 ML 15 ML IV (14:37)
[2022-10-05] VITALS (9 sets, daily range): BP systolic 107–118; BP diastolic 68–76; PULSE 84–97; RESP 18; TEMP 36.5–37.7; O2SAT 96–100
[2022-10-05] MEDS: oxyCODONE 5 MG Tablet PO (05:50)
[2022-10-05] MEDS: Acetaminophen 500 MG Tablet 1000 MG PO ×3 (05:51→22:33)
[2022-10-05] MEDS: FLUoxetine 10 MG Capsule 30 MG PO (10:18)
[2022-10-05] MEDS: Ensure Surgery 237 ML LIQUID PO ×3 (10:21→18:11)
--- NOTE | 2022-10-05 10:39 | NURSING ---
Guadalupe Encarnacion: RN took vitals for this RN. This RN aware of Vitals.
--- NOTE | 2022-10-05 13:05 | PCM.PN.ORT ---
Subjective Subjective Mckenzie is doing extremely well. Her pain is much better than it was yesterday she has been walking up and down the [place]ores. She just started having some flatulence just recently. Her abdomen is still a little full on palpation. I explained to her and mom that I think we should probably keep her 1 more night and I can discharge her tomorrow. Her dressings are both dry. In addition she relates that all the leg pain that she had before surgery is completely resolved. I am very happy with her progress. I will see her again tomorrow and discharge her. Objective Data Objective Data Vital Signs: Vital Signs Temp Pulse Resp BP Pulse Ox O2 Del Method O2 Flow Rate 97.8 F 85 18 118/76 99 Room Air 4 10/05/22 10:00 10/05/22 10:00 10/05/22 10:00 10/05/22 10:00 10/05/22 10:00 10/05/22 10:00 10/05/22 10:00 Oxygen Flow Rate (L/min) 4 Oxygen Delivery Method Room Air Weight: 177 lb 11.081 oz Body Mass Index (BMI) 30.4 Intake & Output: Intake and Output for Last 24 Hours 10/03/22 10/04/22 10/05/22 23:59 23:59 23:59 Intake Total 4262 / 4262 1699.75 / 1699.75 1104.25 / 1104.25 Output Total 880 / 880 4105 / 4105 300 / 300 Balance 3382 / 3382 -2405.25 / -2405.25 804.25 / 804.25 Lab / Micro Data Result Diagrams: 10/04/22 06:40 10/04/22 06:40 Micro: Microbiology 09/22/22 14:26 Swab (Method) Nasal Screen MRSA/MSSA - Final
[2022-10-06 04:19] VITALS: BP 111/59; PULSE 81; RESP 18; TEMP 37; O2SAT 99
[2022-10-06 05:02] VITALS: BP 111/59; PULSE 81; RESP 18; TEMP 37; O2SAT 99
[2022-10-06] MEDS: Acetaminophen 500 MG Tablet 1000 MG PO (06:11)
[2022-10-06 07:39] VITALS: O2SAT 99
[2022-10-06] MEDS: FLUoxetine 10 MG Capsule 30 MG PO (08:19)
[2022-10-06 09:51] VITALS: BP 117/73; PULSE 70; RESP 16; TEMP 36.7; O2SAT 98
[2022-10-06 12:00] VITALS: BP 115/70; PULSE 75; RESP 17; TEMP 36.7; O2SAT 98
--- NOTE | 2022-10-06 13:04 | PCM.PN.ORT ---
Subjective Subjective Postop day and 3. Shelly is doing extremely well. Her leg pain is all completely gone she is up and walking around without a walker. Her dressings are both dry. She is doing extremely well she is very happy with her apparent outcome. I gave her directions regarding her activities she already has an appointment to see me on the of this month. She knows to take the dressing off on Sunday and then on Sunday she can start taking showers again. Objective Data Objective Data Vital Signs: Vital Signs Temp Pulse Resp BP Pulse Ox O2 Del Method O2 Flow Rate 98.1 F 70 16 117/73 98 Room Air 4 10/06/22 09:51 10/06/22 09:51 10/06/22 09:51 10/06/22 09:51 10/06/22 09:51 10/06/22 10:11 10/06/22 05:02 Oxygen Flow Rate (L/min) 4 Oxygen Delivery Method Room Air Weight: 177 lb 11.081 oz Body Mass Index (BMI) 30.4 Intake & Output: Intake and Output for Last 24 Hours 10/04/22 10/05/22 10/06/22 23:59 23:59 23:59 Intake Total 1699.75 / 1699.75 1844.25 / 1844.25 900 / 900 Output Total 4105 / 4105 300 / 300 Balance -2405.25 / -2405.25 1544.25 / 1544.25 900 / 900 Lab / Micro Data Result Diagrams: 10/04/22 06:40 10/04/22 06:40 Micro: Microbiology 09/22/22 14:26 Swab (Method) Nasal Screen MRSA/MSSA - Final
--- NOTE | 2022-10-06 13:05 | DCINST_ITS ---
Discharge Instructions Follow Up Care Test Results: Test results from this visit will be discussed in further detail at your follow- up appointment, if applicable. Discharge Plan Admission Admit Date/Time: 10/03/22 05:31 Primary Reason for Your Visit: lumbar fusion Attending Provider: David Goldman Primary Care Provider: Alejandra Jacobo Consulting Providers: Lyric Venegas Discharge Orders/Prescriptions Prescriptions: No Action fluoxetine [Prozac] 20 mg capsule 30 mg PO DAILY oxycodone-acetaminophen 5-325 mg tablet 1 tab PO Q6H PRN (Reason: pain) 10 Days Qty: 40 0RF Other Ambulatory Orders: 12 Lead EKG (Routine) Timeframe: [id number] Location: None Selected Ordered By: Dr. David Goldman Referrals / Follow Up: Alejandra Jacobo MD [Primary Care Provider] - Disposition Disposition (needs filled in before D/C Order can be placed): Home, Self Care
== END 2022-10-06 14:19 | disposition home or self-care (01) | DRG 460 ==
LOC: ACINP 05:33 → MS3 16:12
PROVIDERS: Anesthesiology; Family Medicine; Admitting Provider Orthopaedic Surgery; PCP Family Medicine; Referring Provider Orthopaedic Surgery; Visit Provider Orthopaedic Surgery
PROC: 0SG00A0 Fusion of Lumbar Vertebral Joint with Interbody Fusion Device, Anterior Approach, Anterior Column, Open Approach (ICD-10-PCS; principal; 2022-10-03 07:00)
DX: M51.26 Other intervertebral disc displacement, lumbar region (principal); F32.A Depression, unspecified; M48.061 Spinal stenosis, lumbar region without neurogenic claudication; F41.9 Anxiety disorder, unspecified; Z20.822 Contact with and (suspected) exposure to COVID-19; Z79.899 Other long term (current) drug therapy
CPT/HCPCS: 36415; 72020; 80048; 81025; 82962; 83735; 85025; 86703; 86706; 86708; 86803; 87081; 88304; 93005; 97162; 97530; 99251; C1713; J7120; A4216; G0463; J2405; J3475

== ENCOUNTER → 2023-08-30 | Outpatient (CLI) | payer OTHER, SELFPAY ==
[2023-08-30 17:38] LABS: Absolute Lymphocyte Count 1.97 X10^3/uL (0.83-4.51); Absolute Neutrophil Count 3.7 X10^3/uL (2.0-7.7); Basophil# 0.03 X10^3/uL; Basophil% 0.5 % (0-1); Eosinophil# 0.06 X10^3/uL; Hematocrit 39.5 % (37-47); Lymphocyte # 1.97 X10^3/ul (0.83-4.51); Lymphocyte % 32.1 % (19-41); Mean Corp Hgb Conc 32.9 g/dL (32-36); Mean Corpuscular Hgb 30.4 pg (27.0-32.0); Mean Corpuscular Volume 92.5 fL (81-99); Mean Platelet Vol. 9.6 fl (6.2-12.0); Monocyte% 6.5 % (0-10); NRBC Flagged by Analyzer 0 % (0-5); Neutrophil # 3.66 X10^3/uL (2.7-7.7); Neutrophil % 59.6 % (47-70); Platelet Count 323 K/mm3 (150-450); RBC Distribution Width CV 11.9 % (11.6-14.6); RBC Distribution Width SD 39.9 fl (35.1-43.9); Red Blood Count 4.27 M/mm3 (4.2-5.4); White Blood Count 6.1 K/mm3 (4.4-11.0)
[2023-08-30 17:56] LABS: Vitamin B12 464 pg/mL (211-911)
[2023-08-30 18:22] LABS: Ferritin 34 ng/mL (8-252); Iron 56 ug/dL (50-170); Iron Binding Capacity,Total 399 ug/dL (250-450); Thyroid Stim Hormone (TSH) 0.88 uIU/mL (0.358-3.74)
== END | disposition home or self-care (01) ==
LOC: BFHLAB 15:28
PROVIDERS: PCP Family Medicine; Referring Provider Family Medicine; Visit Provider Family Medicine
DX: R53.83 Other fatigue (principal)
CPT/HCPCS: 36415; 82607; 82728; 82746; 83540; 83550; 84443; 85025

== ENCOUNTER → 2024-10-30 | Outpatient (CLI) | payer OTHER, SELFPAY ==
[2024-10-30 17:43] LABS: Absolute Lymphocyte Count 2.21 X10^3/uL (0.83-4.51); Absolute Neutrophil Count 4.3 X10^3/uL (2.0-7.7); Basophil# 0.02 X10^3/uL; Basophil% 0.3 % (0-1); Eosinophils% 1.4 % (0-5); Hematocrit 39.4 % (37-47); Hemoglobin 13.3 g/dL (12.0-15.0); Lymphocyte # 2.21 X10^3/ul (0.83-4.51); Lymphocyte % 30.8 % (19-41); Mean Corp Hgb Conc 33.8 g/dL (32-36); Mean Corpuscular Hgb 30.4 pg (27.0-32.0); Mean Platelet Vol. 8.6 fl (6.2-12.0); Monocyte# 0.55 X10^3/uL; Monocyte% 7.7 % (0-10); NRBC Flagged by Analyzer 0 % (0-5); Neutrophil # 4.25 X10^3/uL (2.7-7.7); Neutrophil % 59.2 % (47-70); Platelet Count 339 K/mm3 (150-450); RBC Distribution Width SD 39.9 fl (35.1-43.9); Red Blood Count 4.38 M/mm3 (4.2-5.4); White Blood Count 7.2 K/mm3 (4.4-11.0)
[2024-10-30 18:22] LABS: AST(SGOT) 18 U/L (15-37); Alanine Aminotransfer ALT/SGPT 30 U/L (13-56); Alkaline Phosphatase 62 U/L (45-117); Anion Gap 6 (5-15); BUN 16 mg/dL (7-18); BUN/Creat Ratio 21.2 RATIO (10-20); Calcium,Total 9.4 mg/dL (8.5-10.1); Chloride 106 mmol/L (98-107); Creatinine, Serum 0.75 mg/dL (0.55-1.02); EST Glomerular Filtration Rate 101 mL/min (>60); Est Glom Filt Rate - Afr Amer 122 mL/min (>60); Globulin 4.2 g/dL (2.2-4.2); Glucose 98 mg/dL (74-106); Potassium 3.7 mmol/L (3.5-5.1); Protein, Total 8.2 g/dL (6.4-8.2); Sodium Level 138 mmol/L (136-145); T4 Free Direct 0.89 ng/dL (0.76-1.46); Thyroid Stim Hormone (TSH) 0.972 uIU/mL (0.358-3.740)
== END | disposition home or self-care (01) ==
LOC: BFHLAB 16:43
PROVIDERS: PCP Family Medicine; Visit Provider Family Medicine
DX: E03.9 Hypothyroidism, unspecified (principal)
CPT/HCPCS: 36415; 80053; 84439; 84443; 85025